=== PATIENT | male | born 2005 | race Caucasian/White ===

== ENCOUNTER 2025-08-30 17:40 | Emergency (ER) | payer OTHER, SELFPAY ==
[2025-08-30 18:23] LABS: #Basophils Less than 0.03 10x3/uL (0.0-0.2); #Eosinophils 0.07 10x3/uL (0.0-0.5); #Monocytes 0.43 10x3/uL (0.0-1.1); #Neutrophils 5.64 10x3/uL (1.5-8.4); %Basophils 0.2 % (0.0-2.0); %Eosinophils 1.1 % (0.0-6.0); %Lymphocytes 3.1 % (18.0-47.0); %Monocytes 6.8 % (0.0-10.0); %Neutrophils 88.5 % (40.0-75.0); Hematocrit 45.1 % (38.8-50.0); Hemoglobin 15.9 g/dL (13.5-17.5); Mean Corpuscular Hemoglobin 31.4 pg (27.0-33.0); Mean Corpuscular Volume 89.0 fL (81.2-95.1); Platelet Count 173 10x3/uL (150-450); Red Blood Cell (RBC) Count 5.07 10x6/uL (4.32-5.72); White Blood Cell (WBC) Count 6.37 10x3/uL (3.5-10.5)
[2025-08-30 18:39] LABS: ALT (SGPT) 17 U/L (Less than 45); AST (SGOT) 24 U/L (11-34); Albumin 4.4 g/dL (3.1-4.5); Alkaline Phosphatase 48 U/L (50-130); Anion Gap 12 mmol/L (10-20); BUN (Urea Nitrogen) 15 mg/dL (8.9-20.6); Bilirubin, Total 0.8 mg/dL (0.3-1.2); Calc. Creatinine Clearance 0 mL/min (70-130); Calcium 9.1 mg/dL (7.8-10.44); Carbon Dioxide 24 mmol/L (22-29); Chloride 103 mmol/L (98-107); Globulin 2.9 g/dL (2.4-3.5); Glucose 97 mg/dL (70-105); Lipase 12 U/L (8-78); Potassium 3.8 mmol/L (3.5-5.1); Sodium 135 mmol/L (136-145)
== END 2025-08-30 18:48 | disposition home or self-care (01) ==
LOC: CSHERS 17:40
DX: J45.901 Unspecified asthma with (acute) exacerbation (principal); R11.2 Nausea with vomiting, unspecified; F17.210 Nicotine dependence, cigarettes, uncomplicated; Z79.51 Long term (current) use of inhaled steroids
CPT/HCPCS: 71045; 80053; 83690; 85025; 94760; 96374; J2919